=== PATIENT | female | born 1990 | race Asian ===

== ENCOUNTER 2022-07-30 21:06 | Emergency (ER) | payer BC, OTHER ==
[~2022-07-30] VITALS: Ht 152.4 cm; Wt 58.1 kg
--- NOTE | 2022-07-30 21:23 | NUR ---
[facility] 89 AND [employer] FOR OTB. + ETOH. IN [employer]'S CUSTODY. PT AAOX4 BREATHING EVENLY AN UNLABORED. PT ATTACHED TO MONITOR AND POX. WILL CONTINUE TO MONITOR.
--- NOTE | 2022-07-30 21:36 | NUR ---
Patient discharged to home in stable condition. Written and verbal after care instructions given. Patient verbalizes understanding of instruction. pT ambulatory with a steady gait. Pt left in [employer] custody
[2022-07-30 22:08] VITALS: BP 128/74
== END 2022-07-30 21:36 ==
LOC: ER 21:07
DX: F10.10 Alcohol abuse, uncomplicated (principal); Y90.9 Presence of alcohol in blood, level not specified